=== PATIENT | female | born 1975 | race Caucasian/White ===

== ENCOUNTER 2017-07-10 18:00 | Emergency (ER) | payer MEDICAID ==
[~2017-07-10] VITALS: Ht 170.2 cm; Wt 56.9 kg
[~2017-07-10 18:00] MED LIST: CLIN-80 PO; DULO-31 PO; METH4TAB3 PO; OLAN2.5T3 PO
[2017-07-10] MEDS ORDERED: LIDOcaine 1% 30ml vial IJ ONE (18:45)
[2017-07-10] MEDS ORDERED: CLIN-80 PO (19:10)
[2017-07-10 19:30] VITALS: BP 133/96
== END 2017-07-10 19:32 | disposition home or self-care (01) ==
LOC: ER 18:02
DX: L02.411 Cutaneous abscess of right axilla (principal); Z88.2 Allergy status to sulfonamides
CPT/HCPCS: 10060; 99283; J3490

== ENCOUNTER 2017-07-25 18:36 | Emergency (ER) | payer MEDICAID ==
[~2017-07-25] VITALS: Ht 170.2 cm; Wt 55.1 kg
[2017-07-25 18:51] VITALS: BP 118/95
[2017-07-25] MEDS ORDERED: CLOT15CR73 TP (19:25)
== END 2017-07-25 19:33 | disposition home or self-care (01) ==
LOC: ER 18:37
DX: R21 Rash and other nonspecific skin eruption (principal); Z88.2 Allergy status to sulfonamides; Z88.1 Allergy status to other antibiotic agents
CPT/HCPCS: 99283

== ENCOUNTER 2017-09-07 23:24 | Emergency (ER) | payer MEDICAID ==
[~2017-09-07] VITALS: Ht 170.2 cm; Wt 56.1 kg
[~2017-09-07 23:24] MED LIST changes: +CLOT15CR73 TP
[2017-09-08] MEDS ORDERED: CEPH250T PO (00:35)
[2017-09-08 00:43] VITALS: BP 137/87
== END 2017-09-08 00:45 | disposition home or self-care (01) ==
LOC: ER 23:24
DX: S50.851A Superficial foreign body of right forearm, initial encounter (principal); F15.10 Other stimulant abuse, uncomplicated; Z85.3 Personal history of malignant neoplasm of breast; Z88.1 Allergy status to other antibiotic agents; Z88.8 Allergy status to other drugs, medicaments and biological substances; Z79.899 Other long term (current) drug therapy; X58.XXXA Exposure to other specified factors, initial encounter; Y93.89 Activity, other specified; Y92.89 Other specified places as the place of occurrence of the external cause; Y99.9 Unspecified external cause status
CPT/HCPCS: 73080; 99284

== ENCOUNTER 2019-10-02 13:32 | Emergency (ER) | payer MEDICAID ==
[~2019-10-02] VITALS: Ht 170.2 cm; Wt 57.0 kg
[~2019-10-02 13:32] MED LIST changes: -CLIN-80 PO; +CLIN-97 PO
[2019-10-02 13:39] VITALS: BP 121/78
[2019-10-02 14:36] LABS: CLARITY,URINE SLIGHTLY CLOUDY (Clear); COLOR,URINE YELLOW (Yellow); GLUCOSE, URINE NEGATIVE (Neg); KETONES,URINE NEGATIVE (Neg); LEUKOCYTE ESTERASE ,URINE NEGATIVE (Neg); NITRITES, URINE NEGATIVE (Neg); OCCULT BLOOD,URINE MODERATE (Neg); PROTEIN,URINE NEGATIVE (Neg)
[2019-10-02 14:37] LABS: UA COLLECTION TYPE CLN CATCH MIDSTREAM
[2019-10-02 14:46] LABS: MUCUS STRANDS MANY /LPF (Neg); SQUAMOUS EPITHELIAL CELL,UR MODERATE /LPF (FEW)
[2019-10-02 14:49] LABS: BACTERIA,URINE NONE SEEN /HPF (Neg)
[2019-10-02] MEDS ORDERED: CefTRIAXone 250MG IM Kit w/LIDOcaine IM ONE (15:30)
[2019-10-02] MEDS ORDERED: azithromycin 250mg tablet PO ONE (15:30)
[2019-10-02] MEDS ORDERED: METR-159 PO (16:09)
== END 2019-10-02 16:26 | disposition home or self-care (01) ==
LOC: ER 13:32
DX: N89.8 Other specified noninflammatory disorders of vagina (principal); F41.9 Anxiety disorder, unspecified; F32.9 Major depressive disorder, single episode, unspecified; F15.90 Other stimulant use, unspecified, uncomplicated; Z86.14 Personal history of Methicillin resistant Staphylococcus aureus infection; Z98.890 Other specified postprocedural states; Z85.3 Personal history of malignant neoplasm of breast; Z88.2 Allergy status to sulfonamides; Z88.8 Allergy status to other drugs, medicaments and biological substances; Z79.899 Other long term (current) drug therapy
CPT/HCPCS: 36415; 81001; 87088; 87210; 87491; 87591; 96372; 99284; J0696

== ENCOUNTER 2021-08-04 17:52 | Emergency (ER) | payer MEDICAID ==
[~2021-08-04] VITALS: Ht 170.2 cm; Wt 59.1 kg
[2021-08-04 18:34] VITALS: BP 126/80
[2021-08-04 20:19] LABS: URINE HCG NEGATIVE (NEG)
[2021-08-04] MEDS ORDERED: azithromycin 250mg tablet PO ONE (20:20)
[2021-08-04] MEDS ORDERED: CefTRIAXone 500MG IM Kit w/LIDOcaine IM ONE (20:20)
[2021-08-04] MEDS ORDERED: CefTRIAXone 1000mg IM Kit (w/lidocaine diluent) IM ONE (20:25)
[2021-08-04 20:28] LABS: CLARITY,URINE CLOUDY (Clear); COLOR,URINE YELLOW (Yellow); GLUCOSE, URINE NEGATIVE (Neg); KETONES,URINE TRACE mg/dl (Neg); LEUKOCYTE ESTERASE ,URINE SMALL (Neg); NITRITES, URINE NEGATIVE (Neg); OCCULT BLOOD,URINE SMALL (Neg); PH,URINE 5.5 (4.8-8.0); PROTEIN,URINE NEGATIVE (Neg); UROBILINOGEN,URINE 0.2 E.U/dL (0.2-1.0)
[2021-08-04 20:30] LABS: UA COLLECTION TYPE CLN CATCH MIDSTREAM
[2021-08-04 20:38] LABS: BACTERIA,URINE 3+ /HPF (Neg); MUCUS STRANDS FEW /LPF (Neg); SQUAMOUS EPITHELIAL CELL,UR FEW /LPF (FEW); WBC CLUMPS,URINE FEW /HPF (NEGATIVE)
[2021-08-04 20:39] LABS: RENAL CELLS, URINE FEW /HPF
[2021-08-04 20:41] LABS: CAL OXALATE CRYSTALS 3+ /HPF (NEGATIVE); CELLULAR CAST 0-4 /LPF (NEGATIVE)
[2021-08-04 20:43] LABS: WBC,URINE TNTC /HPF (0-4)
== END 2021-08-04 21:06 | disposition home or self-care (01) ==
LOC: ER 17:53
DX: R30.9 Painful micturition, unspecified (principal); R31.9 Hematuria, unspecified; Z11.3 Encounter for screening for infections with a predominantly sexual mode of transmission
CPT/HCPCS: 36415; 81001; 81025; 87077; 87088; 87186; 87491; 87591; 96372; 99283; J0696

== ENCOUNTER 2022-01-08 21:12 | Emergency (ER) | payer MEDICAID ==
[~2022-01-08] VITALS: Ht 170.2 cm; Wt 56.8 kg
[2022-01-08 23:35] LABS: BASOPHILS % (AUTO) 0.5 % (0-1); EOSINOPHILS % (AUTO) 0.5 % (0-6); HEMATOCRIT 39.3 % (35.0-45.0); HEMOGLOBIN 13.3 g/dl (12.0-16.0); LYMPHOCYTES # (AUTO) 2.1 X10'3 (1.1-4.8); LYMPHOCYTES % (AUTO) 24.2 % (21-51); MEAN CORPUSCULAR VOLUME 91.2 FL (78-98); MEAN PLATELET VOLUME 6.6 FL (7.4-10.4); MONOCYTES # (AUTO) 0.5 X10'3 (0-0.9); MONOCYTES % (AUTO) 5.9 % (2-12); NEUTROPHILS # (AUTO) 5.9 X10'3 (1.8-7.7); NEUTROPHILS % (AUTO) 68.9 % (42-75); PLATELET COUNT 300 X10'3 (140-440); RED BLOOD COUNT 4.31 X10'6 (4.20-5.60); RED CELL DISTRIBUTION WIDTH 13.3 % (11.5-14.5); WHITE BLOOD COUNT 8.6 X10'3 (4.5-11.0)
[2022-01-08 23:47] LABS: ALANINE AMINOTRANSFERASE 19 U/L (12-78); ALBUMIN 3.1 G/DL (3.4-5.0); ALKALINE PHOSPHATASE 62 IU/L (46-116); ANION GAP 10 (8-16); ASPARTATE AMINO TRANSFERASE 13 U/L (10-37); BILIRUBIN,TOTAL 0.5 MG/DL (0.1-1.0); BLOOD UREA NITROGEN 6 MG/DL (7-18); BUN/CREATININE RATIO 12.5 (6.6-38.0); CHLORIDE 108 MMOL/L (99-107); CREATININE 0.48 MG/DL (0.40-0.90); ETHANOL 0.105 GM/DL (0.0-0.010); GLUCOSE 76 MG/DL (70-104); POTASSIUM 3.3 MMOL/L (3.5-5.1); SODIUM 144 MMOL/L (135-145); TOTAL CARBON DIOXIDE 26.2 MMOL/L (24-32); TOTAL PROTEIN 6.3 G/DL (6.4-8.2); eGFR > 90 ML/MIN
[2022-01-09] MEDS ORDERED: POTASSIUM BICARB 20meq eff tab 20 MEQ TABLET.EFF PO SCH (03:05)
[2022-01-09] MEDS ORDERED: ketorolac trometh. 30mg/ml inj. IV ONE (03:30)
--- NOTE | 2022-01-09 08:00 | NUR ---
PT IS AWAKE, TAKEN TO BATHROOM. NOTIFIED THAT HER BOYFRIEND CALLED, PT HAS GIVEN PERMISSION TO GIVE HER BOYFRIEND, MARIAM; INFORMATION REGARDING HER CURRENT STATUS
[2022-01-09 16:04] LABS: URINE HCG NEGATIVE (NEG)
[2022-01-09 16:13] LABS: URINE AMPHETAMINE SCREEN NEGATIVE (Neg); URINE BARBITUATE SCREEN NEGATIVE (Neg); URINE BENZODIAZEPINES SCREEN NEGATIVE (Neg); URINE CANNABINOID SCREEN NEGATIVE (Neg); URINE COCAINE SCREEN NEGATIVE (Neg); URINE METHADONE SCREEN NEGATIVE (Neg); URINE OPIATE SCREEN NEGATIVE (Neg); URINE PHENCYCLIDINE SCREEN NEGATIVE (Neg)
--- NOTE | 2022-01-09 18:58 | NUR ---
PT SITTING UP EATING DINNER.
--- NOTE | 2022-01-10 05:14 | NUR ---
PT IN BED ASLEEP.
--- NOTE | 2022-01-10 07:45 | NUR ---
LATE NOTE FROM 01/09/22 PT HAS GIVEN PERMISSION FOR HER DAUGHTER FORREST TO RECEIVED STATUS INFORMATION ON PT'S CURRENT VISIT.
[2022-01-10 09:12] VITALS: BP 109/76
--- NOTE | 2022-01-10 10:04 | NUR ---
[facility] FAXED.
== END 2022-01-10 12:15 | disposition home or self-care (01) ==
LOC: ER 21:17
DX: S09.90XA Unspecified injury of head, initial encounter (principal); R45.851 Suicidal ideations; M54.50 Low back pain, unspecified; F15.20 Other stimulant dependence, uncomplicated; Z88.2 Allergy status to sulfonamides; W19.XXXA Unspecified fall, initial encounter; Y93.89 Activity, other specified; Y92.89 Other specified places as the place of occurrence of the external cause; Y99.8 Other external cause status
CPT/HCPCS: 72131; 80053; 80305; 80320; 81025; 85025; 96374; 99285; J1885